=== PATIENT | male | born 1960 | race Caucasian/White ===

== ENCOUNTER → 2021-03-21 08:29 | Outpatient (BNVA) | payer OTHER, SELFPAY | PROVIDERS: Referring Provider Emergency Medicine Emergency Medical Services; Visit Provider Specialist | DX: M25.562 Pain in left knee (principal); M77.8 Other enthesopathies, not elsewhere classified | CPT/HCPCS: 73560; 73565 ==

== ENCOUNTER 2021-04-06 15:51 | Outpatient (CLI) | payer OTHER, SELFPAY ==
--- NOTE | 2021-04-06 16:30 | MR_ITS ---
WS: [id number] MRI LEFT KNEE HISTORY: M17.12 - Unilateral primary osteoarthritis, left knee COMPARISON: Radiograph 03/21/2021 Anterior cruciate ligament: Mild intrasubstance degeneration within the ACL. There is increased signa l within the central ligament. Suspect partial intrasubstance tear. There is increased signal within the distal ACL. No full-thickness tear. Posterior cruciate ligament: Intact. Medial collateral ligament: Small amount of fluid and increased T2 signal along the MCL. No tear. Posterior lateral corner structures: Intact. Medial menisci: Horizontal tear in the posterior horn extends to the inferior articular surface. Ante rior horn is negative. Lateral meniscus: Mild intrasubstance degeneration in the posterior horn. No tear. Extensor mechanism: Distal quadriceps tendon and patellar tendons are intact. Fluid and soft tissue: Small suprapatellar joint effusion. . Tiny Ferrara's cyst. Osseous and articular structures: Patellofemoral compartment: Mild thinning of the cartilage over the lateral patellar facet. No underl bhakti marrow edema. No displacement. Medial compartment: Very mild narrowing of the medial compartment. There is mild thinning and fissuri ng of the cartilage. No full-thickness defects. There are small subchondral cysts along the posterior tibial plateau close to the intercondylar notch. The largest subchondral cyst measures 8 mm. Minimal amount of marrow edema in the tibial plateau adjacent to the MCL. Lateral compartment: Mild narrowing of the lateral compartment. 8mm cartilage defect within the weigh tbearing surface along the femoral condyle. Cartilage defect does extend to the bone although there i s no underlying marrow edema at this location. There is a small focal fluid collection along the lateral tibial plateau closely associated with the meniscus and the popliteus tendon. This could be a meniscal cyst associated with an occult meniscal t ear. Not definitely identifying a tear within the lateral meniscus MR/MR knee LT wo con* [id number] IMPRESSION: 1. Horizontal tear posterior horn medial meniscus. 2. Increased signal throughout the ACL. No thickness tears. Probably represent ing intrasubstance degeneration. 3. 8mm cartilage defect weightbearing surface lateral femoral condyle. 4. Small cyst between the lateral tibial plateau and the popliteus tendon. Thi s could be a meniscal cyst related to an occult meniscal tear or small ganglion . 5. Small suprapatellar effusion.
== END 2021-04-06 15:52 | disposition home or self-care (01) ==
PROVIDERS: PCP Emergency Medicine Emergency Medical Services; Visit Provider Specialist
DX: M17.12 Unilateral primary osteoarthritis, left knee (principal); M25.462 Effusion, left knee; S83.242A Other tear of medial meniscus, current injury, left knee, initial encounter; X58.XXXA Exposure to other specified factors, initial encounter
CPT/HCPCS: 73721

== ENCOUNTER 2021-05-14 06:00 | Outpatient (RCR) | payer OTHER, SELFPAY | END 2021-06-10 23:59 | disposition home or self-care (01) | LOC: WPT 06:00 | PROVIDERS: PCP Specialist; Referring Provider Specialist; Visit Provider Specialist | DX: M17.12 Unilateral primary osteoarthritis, left knee (principal) | CPT/HCPCS: 97110; 97162 ==

== ENCOUNTER → 2021-07-26 09:03 | Outpatient (BNVA) | payer OTHER, SELFPAY | PROVIDERS: PCP Specialist; Visit Provider Urology | DX: N40.1 Benign prostatic hyperplasia with lower urinary tract symptoms (principal); N13.8 Other obstructive and reflux uropathy | CPT/HCPCS: 81003 ==